=== PATIENT | female | born 1985 | race Caucasian/White ===

== ENCOUNTER 2022-07-14 02:09 | Emergency (ER) | payer BC ==
[~2022-07-14] VITALS: Ht 162.6 cm; Wt 104.3 kg
[2022-07-14] MEDS ORDERED: IBUPROFEN 400 MG TABLET PO ONE (03:30)
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
[2022-07-14] MEDS ORDERED: IBUPROFEN 400 MG TABLET ONE (03:36)
[2022-07-14 04:42] VITALS: BP 139/86
== END 2022-07-14 04:43 | disposition home or self-care (01) ==
LOC: ER 02:10
DX: S09.8XXA Other specified injuries of head, initial encounter (principal); S39.82XA Other specified injuries of lower back, initial encounter; E11.9 Type 2 diabetes mellitus without complications; V09.9XXA Pedestrian injured in unspecified transport accident, initial encounter; Y93.01 Activity, walking, marching and hiking; Y92.89 Other specified places as the place of occurrence of the external cause; Y99.8 Other external cause status
CPT/HCPCS: 70450-TC; 72220-TC